=== PATIENT | male | born 1930 | race Caucasian/White ===

== ENCOUNTER → 2016-06-17 | Day surgery (SDC) | payer MEDICARE, BC ==
[~2016-06-17] MED LIST: Lactated Ringers 1,000 ML IV SCH; Lidocaine 2% 100 MG/5 ML Syringe IVPUSH ONE; Midazolam 1 MG/ML 2 ML SDV IV ONE; Propofol 200 MG/20 ML SDV IV ONE
--- NOTE | 2016-06-17 12:18 | PCM.OPNOTE ---
- General Post-Op/Procedure Note Date of Surgery/Procedure: 06/17/16 Operative Procedure(s): egd Findings: normal egd Pre Op Diagnosis: heme + stools hx of nausea Post-Op Diagnosis: normal scope Anesthesia Technique: MAC Primary Surgeon: Nikunj Wong Anesthesia Provider: Opal Egan Pathology: none Complications: None Condition: Good Free Text/Narrative:: see dictation
[2016-06-17 12:44] VITALS: BP 118/62
--- NOTE | 2016-06-17 12:49 | OR ---
DATE OF OPERATION: 06/17/2016 SURGEON: Nikunj Wong MD PROCEDURE PERFORMED: Esophagogastroduodenoscopy. PREOPERATIVE DIAGNOSIS: Blood in stool and nausea. POSTOPERATIVE DIAGNOSIS: Normal upper endoscopy. INDICATIONS FOR PROCEDURE: This is an 85-year-old white male, who has been referred with the above-mentioned complaints. He was offered and accepted upper endoscopy. DESCRIPTION OF OPERATION: After an excellent IV sedation was administered and the bite block was inserted, flexible endoscope was passed without difficulty down the patient's esophagus into the stomach. The stomach was insufflated. The scope was passed through the pylorus to the second portion of the duodenum and slowly withdrawn. The following findings were noted. Duodenum was unremarkable. Stomach demonstrates no gross abnormalities. Esophagus, no gross abnormalities. The stomach was deflated, the scope was removed. The patient tolerated the procedure well and was taken to recovery room in good condition. /[id number] TED/KRISTOPHER
== END | disposition home or self-care (01) ==
LOC: FB.SDS 08:35
PROVIDERS: ATTEND Surgery
DX: K92.1 Melena (principal); R11.2 Nausea with vomiting, unspecified; E78.5 Hyperlipidemia, unspecified; F32.9 Major depressive disorder, single episode, unspecified; Z79.899 Other long term (current) drug therapy; Z79.82 Long term (current) use of aspirin; Z98.890 Other specified postprocedural states; Z87.891 Personal history of nicotine dependence
CPT/HCPCS: 43235; J7120; 00740-QZ; J2250; J2704

== ENCOUNTER 2016-09-28 07:47 | Day surgery (SDC) | payer MEDICARE, BC ==
[2016-09-28] MEDS ORDERED: Lactated Ringers 1,000 ML IV SCH (08:00)
[2016-09-28] MEDS ORDERED: Propofol 200 MG/20 ML SDV IV ONE (10:00)
--- NOTE | 2016-09-28 10:25 | PREOP ---
ADMISSION DATE: 09/28/2016 CHIEF COMPLAINT: Blood in stool. HISTORY OF PRESENT ILLNESS: This is an 86-year-old white male, who has a history of continued heme-positive stools. He notes no GI issues except for some nausea. Appetite is good. No emesis. No obvious blood per rectum. He has a history of radiation therapy to his prostate in the past and underwent an upper endoscopy earlier this year, which was grossly normal. I did not biopsy anything at that time. He presents now for repeat upper and lower endoscopy. MEDICATIONS: At the time of admission include Wellbutrin 75 mg twice a day, multivitamin one per day, glucosamine chondroitin one capsule one per day, Prilosec 20 mg daily, Celexa 40 mg one time per day, vitamin D calciferol 1000 units daily, omega-3 fish oil 1000 mg capsule daily, and Colace five tabs every evening before bed. ALLERGIES: He has no known drug allergies. PAST MEDICAL HISTORY: Significant for osteoarthritis, sleep apnea, and prostate cancer as well as degenerative disk disease of the neck and depression. PAST SURGICAL HISTORY: Significant for colonoscopy, bilateral cataract surgery, thyroid surgery, transurethral electrosurgical resection of the prostate, and an upper endoscopy. FAMILY HISTORY: Significant for pulmonary embolism, heart disease, and GI bleeding. SOCIAL HISTORY: He is , with 3 children. He is a former smoker. He has an occasional whiskey. REVIEW OF SYSTEMS: CONSTITUTIONAL: Negative. RESPIRATORY: Negative. CARDIOVASCULAR: Negative. GASTROINTESTINAL: Positive for nausea. MUSCULOSKELETAL: Positive for back pain. SKIN: Negative. PHYSICAL EXAMINATION: GENERAL: This is a well-developed, well-nourished white male appearing in no acute distress. HEENT: Grossly within normal limits. LUNGS: Clear to auscultation. HEART: Regular rate and rhythm. ABDOMEN: Soft and nontender. ASSESSMENT: Blood in the stool and nausea. PLAN: EGD and C scope. Procedure and risks explained to the patient, to include bleeding, infection, and perforation. The patient expresses understanding, and he asked us to proceed. /[id number] /MODL
--- NOTE | 2016-09-28 10:33 | PCM.OPNOTE ---
- General Post-Op/Procedure Note Date of Surgery/Procedure: 09/28/16 Operative Procedure(s): egd with bx. c scope [facility] bx Findings: gastritis melanosis coli radiation proctitis Pre Op Diagnosis: heme + stools. nausea. hx of xrt to prostate Post-Op Diagnosis: gastritis. melanosis coli. radiation proctitis [place]est[place] [facility] [place] Surgeon: Nikunj Wong Anesthesia Provider: Ben Nelson Pathology: stomach and rectum Complications: None Condition: Good Free Text/Narrative:: see dictation
--- NOTE | 2016-09-28 12:19 | OR ---
DATE OF OPERATION: 09/28/2016 SURGEON: Nikunj Wong MD PROCEDURE PERFORMED: Esophagogastroduodenoscopy with cold forceps biopsy and colonoscopy with cold forceps biopsy. PREOPERATIVE DIAGNOSES: History of nausea, heme-positive stools, and radiation therapy to the prostate. POSTOPERATIVE DIAGNOSES: Gastritis, melanosis coli, and proctitis. INDICATIONS FOR PROCEDURE: This is an 86-year-old white male, who is referred with history of some nausea. In addition, he was noted to have heme-positive stools. He has had scopes in the past which has demonstrated proctitis, but given the time period it involved. He was offered and accepted an upper and lower endoscopy. DESCRIPTION OF OPERATION: After an excellent IV sedation was administered, the bite block was inserted. The flexible endoscope was passed without difficulty down the patient's esophagus into the stomach. The stomach was insufflated, and the scope was passed through the pylorus to the second portion of the duodenum and slowly withdrawn. The following findings were noted. Duodenum was unremarkable. Stomach demonstrated some mild diffuse gastritis. Patient Service Rep biopsies were taken. Esophagus was unremarkable. The scope was removed after deflating the stomach. Attention was then turned to the patient's colon. Digital rectal exam was performed. A small skin tag was noted, otherwise, unremarkable. A flexible colonoscope was inserted and advanced to the cecum without difficulty. The prep was excellent. The following findings were noted. Ascending colon, evidence of melanosis coli, otherwise, unremarkable. Transverse colon, melanosis coli. Descending colon, melanosis coli. Sigmoid, melanosis coli. Rectum just above the anal verge, in the area of the prostate was some inflamed friable tissue consistent with radiation proctitis. Biopsies were taken. The colon was deflated as the scope was removed. The patient tolerated the procedure well and was taken to recovery in good condition. /[id number] /MODL
[2016-09-28 14:41] VITALS: BP 131/63
== END 2016-09-28 11:55 | disposition home or self-care (01) ==
LOC: FB.SDS 07:47
PROVIDERS: ATTEND Surgery
PROC: 0DB68ZX Excision of Stomach, Via Natural or Artificial Opening Endoscopic, Diagnostic (ICD-10-PCS; principal; 2016-09-28)
PROC: 0DBE8ZX Excision of Large Intestine, Via Natural or Artificial Opening Endoscopic, Diagnostic (ICD-10-PCS; 2016-09-28)
DX: R11.0 Nausea (principal); K29.50 Unspecified chronic gastritis without bleeding; K63.89 Other specified diseases of intestine; K62.89 Other specified diseases of anus and rectum; M50.30 Other cervical disc degeneration, unspecified cervical region; M19.93 Secondary osteoarthritis, unspecified site; Z87.891 Personal history of nicotine dependence; Z79.899 Other long term (current) drug therapy
CPT/HCPCS: 00810; 43239; 45380; 88305; 88342; J7120; J2704